=== PATIENT | female | born 1995 | race Caucasian/White ===

== ENCOUNTER 2017-08-20 22:54 | Emergency (ER) | payer OTHER ==
[~2017-08-20] VITALS: Ht 172.7 cm; Wt 63.5 kg
[2017-08-21 00:52] LABS: HEMOGLOBIN 16.1 gm/dL (12.0-15.0); MCH 30.7 pg (26.0-34.0); MCHC 33.6 g/dL (28.0-37.0); MCV 91.5 fL (80.0-100.0); MPV 9.3 fl. (7.2-11.1); NUCLEATED RBCS 0 /100WBC; PLATELET COUNT* 202 thou/uL (150-400); RBC 5.25 mil/uL (4.20-5.00); RDW-CV 13.1 % (10.5-14.5)
[2017-08-21 00:56] LABS: INFLUENZA A ANTIGEN None Detected (None Detect); INFLUENZA B ANTIGEN None Detected (None Detect)
[2017-08-21 01:03] LABS: CALCIUM 9.5 mg/dL (8.5-10.1); CREATININE 0.7 mg/dL (0.6-1.3); POTASSIUM 3.9 mmol/L (3.5-5.1)
[2017-08-21 01:33] LABS: ABSOLUTE MONOCYTES 0.6 thou/uL (0.0-1.2); ABSOLUTE NEUTROPHILS 15.4 thou/uL (1.6-8.1)
[2017-08-21 01:34] LABS: PLATELET ESTIMATE ADEQUATE
[2017-08-21] MEDS ORDERED: ZOFRAN ODT4 MG PO (01:43)
[2017-08-21 01:55] VITALS: BP 112/67
== END 2017-08-21 01:55 | disposition home or self-care (01) ==
LOC: M.ERS 22:54
PROVIDERS: Emergency Medicine
DX: R11.2 Nausea with vomiting, unspecified (principal); R19.7 Diarrhea, unspecified; F10.99 Alcohol use, unspecified with unspecified alcohol-induced disorder